=== PATIENT | male | born 1990 | race Caucasian/White ===

== ENCOUNTER 2019-02-19 18:30 | Emergency (ER) | payer OTHER ==
[~2019-02-19] VITALS: Ht 188 cm; Wt 104.3 kg
[2019-02-19] MEDS ORDERED: MEDROLDOSEPACK PO (19:54)
[2019-02-19] MEDS ORDERED: ROBAXIN 750 MG750 MG PO (19:54)
[2019-02-19] MEDS ORDERED: LIDODERM1 EACH TOP (19:54)
[2019-02-19] MEDS ORDERED: TYLENOL WITH CO1 TA1 PO (19:54)
[2019-02-19 20:12] VITALS: BP 126/84
== END 2019-02-19 20:14 | disposition home or self-care (01) ==
LOC: M.ERS 18:30
DX: M54.6 Pain in thoracic spine (principal)